=== PATIENT | female | born 1955 | race Caucasian/White ===

== ENCOUNTER 2016-07-09 10:06 | Emergency (ER) | payer OTHER ==
[~2016-07-09] VITALS: Ht 154.9 cm; Wt 78.4 kg
[~2016-07-09 10:06] MED LIST: AMLO5TAB2 PO; LISI40TA PO; SERT100T9 PO
[2016-07-09 10:10] VITALS: BP 180/96; PULSE 74; RESP 18; O2SAT 95
--- NOTE | 2016-07-09 12:02 | DRSVH ---
PROCEDURE: X-RAY CHEST ONE VIEW, PORTABLE ([id number]) INDICATIONS: chest pain TECHNIQUE: One view of the chest was acquired. COMPARISON: None. FINDINGS: Surgical changes and devices: None. Lungs and pleura: No pleural effusions or pneumothorax. Lungs are clear. Mediastinum: Mediastinal contours appear normal. Heart size is normal. Bones and chest wall: No suspicious bony lesions. Overlying soft tissues appear unremarkable. IMPRESSION: No acute cardiopulmonary disease. Dictated by: Tony Pedersen [facility] Interpreted: Corie Laureano MD on 07/09/2016 at 12:01 Transcribed by: KENDRA on 07/09/2016 at 12:02 Approved by: Corie Laureano MD, PhD on 07/09/2016 at 16:29
--- NOTE | 2016-07-09 12:03 | ED.REPORT ---
HPI-NVD Date of Service Jul 09, 2016 ED Provider: Aramis Oviedo PA-C Jelena is a 60-year-old female with a history of smoking, type II diabetes, hypertension and hyperlipidemia who presents with a chief complaint of nausea and diarrhea. She states that she has burning substernal chest pain, heartburn , nausea for the last 2 weeks. One episode of diarrhea this morning. Pain radiates to her shoulders. Patient states the pain feels like somebody's been "punching me on the inside." Patient states that eating food aggravates her nausea, but the pain is ameliorated or aggravated by anything she can relate. Admits to an episode of "dark stools" 2 days ago, denies using Pepto-Bismol or iron supplements. Admits occasional alcohol use, history of hysterectomy and appendectomy. Denies cholecystectomy. Denies vomiting, history of ulcers, dyspnea, shortness of breath, wheezing, urinary symptoms. Nursing Notes Stated Complaint: NAUSEA/ VOMITING/DIARRHEA Chief Complaint: General Complaint Nursing Notes Reviewed: Yes Allergies: Coded Allergies: Penicillins (Verified Allergy, Severe, SWELLING, 01/26/14) latex (Verified Allergy, Mild, SKIN IRRITATION, 01/27/14) Nifhxoa-Ond-Saf Reductase Inhibitor (Verified Allergy, Unknown, HIVES, 05/30) codeine (Verified Allergy, Unknown, ITCHING, 01/26/14) fenofibrate (Verified Allergy, Unknown, 07/09/16) metformin (Verified Allergy, Unknown, ANGER, 01/26/14) morphine (Verified Allergy, Unknown, ITCHING, 01/26/14) Scheduled Amlodipine (Amlodipine) 5 Mg Tablet 5 MG PO DAILY Lisinopril (Lisinopril) 40 Mg Tablet 40 MG PO DAILY Omeprazole (Omeprazole) 20 Mg Capsule.dr 20 MG PO DAILY Ondansetron ODT (Ondansetron ODT) 8 Mg Tab.rapdis 8 MG PO TID Sertraline HCl (Sertraline) 100 Mg Tablet 100 MG PO DAILY General Time Seen by MD: 11:30 Chief Complaint Nausea Past Medical History Smoking History Current Every Day Smoker, Heavy Tobacco Smoker Review of Systems Negative unless stated otherwise in history of present illness Physical Exam General: Well appearing, well developed, well nourished, no acute distress. Head: Atraumatic, normocephalic. Eyes: No scleral icterus or injection. No discharge. Vision grossly intact. ENT: Mucous membranes moist, voice clear, hearing grossly intact. Respiratory: Regular rate and rhythm. Breath sounds present, clear to auscultation and equal bilaterally. Cardiovascular: Regular rate and rhythm, without murmur, gallop or rub. No pedal edema. Gastrointestinal: Abdomen flat and non-tender without guarding or rebound. Bowel sounds normoactive. Skin: Warm and dry. Neurological: Grossly nonfocal. Psychological: Alert and oriented. Speech appropriate, linear and logical. Behavior appropriate. Initial Vital Signs Vital Signs (First) Date Time Temp Pulse Resp B/P Pulse Ox O2 Delivery O2 Flow Rate FiO2 07/09/16 10:10 36.2 74 18 180/96 95 Room Air Initial VS: Reviewed, Vital signs abnormal (blood pressure elevated) Interpretation & Diagnostics Lab Results Interpretation Result Diagram: 07/09/16 1235 07/09/16 1235 Test 07/09/16 12:35 White Blood Count 8.6th/mm3 (3.8-10.1) Red Blood Count 5.07mil/mm3 (3.90-5.20) Hemoglobin 14.4g/dL (12.0-15.6) Hematocrit 41.6% (35.0-46.0) Mean Corpuscular Volume 82.1fL (81-100) Mean Corpuscular Hemoglobin 28.4pg (27.0-35.0) Mean Corpuscular Hemoglobin Concent 34.6% (32.0-37.0) Red Cell Distribution Width 13.6% (12.3-15.4) Platelet Count 233bil/L (150-400) Neutrophils (%) (Auto) 59.4% (40-74) Lymphocytes (%) (Auto) 29.1% (14-46) Monocytes (%) (Auto) 9.0% (4-12) Eosinophils (%) (Auto) 2.1% (0-5) Basophils (%) (Auto) 0.2% (0-3) Sodium Level 138mEq/L (134-144) Potassium Level 4.4mEq/L (3.5-5.2) Chloride Level 100mEq/L (97-108) Carbon Dioxide Level 23mmol/L (18-29) Blood Urea Nitrogen 19mg/dL (6-24) Creatinine 0.71mg/dL (0.57-1.00) Estimat Glomerular Filtration Rate 121mL/min (>59) Glucose Level 93mg/dL (60-99) Calcium Level 9.1mg/dL (8.5-10.1) Magnesium Level 2.5mg/dL (1.6-2.6) Total Bilirubin 0.2mg/dL (0.0-1.2) Aspartate Amino Transf (AST/SGOT) 18U/L (0-50) Alanine Aminotransferase (ALT/SGPT) 20U/L (0-32) Alkaline Phosphatase 73U/L (25-165) Troponin T < 0.010ug/L (0.0-0.011) Total Protein 6.6g/dL (6.4-8.4) Albumin 4.1g/dL (3.4-5.0) Hold Bah Top Tube Received (Received) X-Ray Chest Interpretation Interpretation / Wet Read by: Interpret - Radiologist, Interp - [facility] NL X-Ray Chest Findings: No infiltrate, Normal lung markings, Normal heart size, Normal mediastinum, Normal great vessels, No fracture, Soft tissues normal , No acute disease, No sail sign, NL cardiothymic shadow Re-Eval/Medical Decision Med Decision/Clinical Course I discussed this case with Dr. Em. Physical exam, labs including troponin, EKG, chest x-ray are all reassuring. I believe this is most likely be GERD versus angina, VT, dissecting aortic aneurysm, pneumonia, PE, ulcer, perforation, cholecystitis, pancreatitis. Patient responded well to half liter normal saline, GI cocktail, ondansetron. By mouth challenge was successful. Feels well and ready for discharge to home. Prescribed omeprazole, ondansetron, Advised primary care follow-up, gave return precautions. Re-Evaluation/Progress : Time of Eval: 14:14 Re-Evaluation/Progress Note: Patient states her nausea and pain is improved with GI cocktail and Zofran. She is hungry. Initiated by mouth challenge with crackers and water. Abdomen soft and nontender. Discharge & Departure Impression: Primary Impression: Non-cardiac chest pain Disposition: Home Discharge Condition All VS Reviewed: Yes Condition: Stable Additional Instructions: Evaluation for nausea and substernal chest pain in the emergency department. History and physical initially concerning for the possibility of a cardiac cause however EKG and troponin are normal. You responded well to the GI cocktail and antinausea medications, suggesting this may be gastric. I think GERD is a possibility. We will send you home with a prescription for an anti- acid medication to take once a day and an anti-nausea medication to take when needed. I suggest you eat mild food as tolerated. I also recommend you stop smoking. Follow up with your primary care provider as planned, or sooner if your symptoms do not improve with medication. Return to emergency department for any new or worsening symptoms, including new or different chest pain, difficulty breathing, repeated vomiting, black/bloody stools.. Referrals: Bertha Cardona PA-C (PCP) EDSupervising Provider for APC: Morgan Em MD copies to: Bertha Cardona PA-C, Seth PA-C Jul 09, 2016 12:03
[2016-07-09 12:47] LABS: BASOPHILS % (AUTO) 0.2 % (0-3); EOSINOPHILS % (AUTO) 2.1 % (0-5); Mean Corpuscular Hemoglobin 28.4 pg (27.0-35.0); Mean Corpuscular Volume 82.1 fL (81-100); NEUTROPHILS % (AUTO) 59.4 % (40-74); Platelet Count 233 bil/L (150-400)
[2016-07-09] MEDS ORDERED: Pantoprazole 4 mg/mL 10 mL Inj IVPUSH ONE (13:15)
[2016-07-09] MEDS ORDERED: Alum-Mag Hydrox-Simeth 30 mL Suspension PO ONE (13:15)
[2016-07-09] MEDS ORDERED: Ondansetron 2 mg/mL 2 mL Inj IVPUSH ONE (13:15)
[2016-07-09] MEDS ORDERED: 0.9% Sodium Chloride 1,000 ML IV ONE ×2 (13:15→13:25)
[2016-07-09 13:17] LABS: Magnesium 2.5 mg/dL (1.6-2.6)
[2016-07-09 13:23] LABS: TROPONIN T < 0.010 ug/L (0.0-0.011)
[2016-07-09] MEDS ORDERED: ONDA8TAB10 PO (14:53)
[2016-07-09] MEDS ORDERED: OMEP20CA11 PO (14:53)
[2016-07-09 14:59] VITALS: BP 131/80; PULSE 65; RESP 20; O2SAT 97
== END 2016-07-09 14:59 | disposition home or self-care (01) ==
LOC: SED 10:06
DX: R07.89 Other chest pain (principal); R11.0 Nausea; R19.7 Diarrhea, unspecified; F17.200 Nicotine dependence, unspecified, uncomplicated; Z88.0 Allergy status to penicillin; Z88.5 Allergy status to narcotic agent; Z88.8 Allergy status to other drugs, medicaments and biological substances; Z91.040 Latex allergy status
CPT/HCPCS: 36415; 71010; 80053; 83735; 84484; 85025; 93005; 96361; 96374; 96375; 99285; J2405; J7030